=== PATIENT | male | born 1970 | race African-American/Black ===

== ENCOUNTER 2021-09-07 11:56 | Emergency (ER) | payer BC, SELFPAY ==
[2021-09-07 12:10] VITALS: BP 167/94; PULSE 111; RESP 16; TEMP 38.4; O2SAT 98
--- NOTE | 2021-09-07 13:25 | ED.URI ---
HPI - URI/Sore Throat General Chief Complaint: Upper Respiratory Infection Stated Complaint: Cough Time Seen by Provider: 09/07/21 13:11 Source: patient and RN notes reviewed Mode of arrival: ambulatory Limitations: no limitations History of Present Illness HPI Narrative: Patient presents today complaining of 5-day history of productive cough, sneezing, mild sore throat. Denies fever, shortness of breath. Denies sick contacts. He has been taking Tylenol with some relief. History of diabetes. Non-smoker. MD elicited complaint: cough Related Data Home Medications Medication Instructions Recorded Confirmed carvedilol 25 mg PO DAILY 09/07/21 09/07/21 lisinopril-hydrochlorothiazide 1 tablet PO DAILY 09/07/21 09/07/21 sitagliptin-metformin [Janumet XR] 1 tablet PO DAILY 09/07/21 09/07/21 Allergies Allergy/AdvReac Type Severity Reaction Status Date / Time No Known Allergies Allergy Verified 09/07/21 13:18 Review of Systems Review of Systems: CONSTITUTIONAL: Denies body aches, fever, chills, or sweats. EYES: Denies visual changes, redness, or discharge. ENT: Denies rhinorrhea, congestion, or otalgia.+ Sore throat, sneezing CARDIOVASCULAR: Denies chest pain, palpitations, or edema. RESPIRATORY: + Congestion. Denies shortness of breath GASTROINTESTINAL: Denies abdominal pain, nausea, vomiting, or diarrhea. GENITOURINARY: Denies dysuria or hematuria. SKIN: Denies rash, itching, or wounds. MUSCULOSKELETAL: Denies back pain, joint pain, or myalgia. NEUROLOGIC: Denies headache, numbness, tingling, or weakness. PSYCH: Denies depression or anxiety. FOR[facility]LY [facility] Past Medical History Medical History (Updated 09/07/21 @ 13:30 by Carrol Celeste, [facility], ) Diabetes High cholesterol Hypertension Comments At time of signature, I have reviewed and agree with nursing past medical, surgical, social and family history unless otherwise noted. Please see nursing chart for further information. There is no relevant family history pertinent to the presenting complaint Exam Narrative: GENERAL: Well-appearing, well-nourished, and in no acute distress. HEAD: Normocephalic, atraumatic. EYES: EOMI. No redness or drainage. Conjunctivae normal. ENT: Mucous membranes pink and moist. Nares clear. No rhinorrhea. TMs normal bilaterally. Throat normal. Uvula midline. NECK: Normal AROM. Supple. No lymphadenopathy. CHEST: No respiratory distress. Clear to auscultation. HEART: Regular rate and rhythm. No murmur appreciated. Normal peripheral pulses. EXTREMITIES: Normal range of motion. No edema. SKIN: Warm, dry, no rash. Capillary refill normal. Normal skin turgor. NEURO: No focal deficits. Alert and oriented x3. Gait steady. PSYCH: Normal affect. No signs of depression or anxiety. Course Vital Signs Vital signs: Vital Signs Temperature 101.2 F H 09/07/21 12:10 Pulse Rate 111 H 09/07/21 12:10 Respiratory Rate 16 09/07/21 12:10 Blood Pressure 167/94 H 09/07/21 12:10 Pulse Oximetry 98 09/07/21 12:10 Temperature 101.2 F H 09/07/21 12:10 Pulse Rate 111 H 09/07/21 12:10 Respiratory Rate 16 09/07/21 12:10 Blood Pressure 167/94 H 09/07/21 12:10 Pulse Oximetry 98 09/07/21 12:10 Reviewed. Pt has been instructed to follow up with his PCP regarding his elevated blood pressure today. MDM - URI/Sore Throat MDM Narrative Medical decision making narrative: Patient declines Covid PCR Differential Diagnosis Differential diagnosis: Likely upper respiratory infection, sinusitis, viral infection, bronchitis, influenza and other (COVID-19) Lab Data Attestation: I reviewed the patient's lab results. Lab results narrative: Rapid COVID-19 test negative Labs: Influenza A Screen Negative Reference Range: Negative Influenza B Screen Negative Reference Range: Negative Critical Care Time Critic
== END 2021-09-07 13:35 | disposition home or self-care (01) ==
PROVIDERS: Emergency Provider Nurse Practitioner
DX: J40 Bronchitis, not specified as acute or chronic (principal); J06.9 Acute upper respiratory infection, unspecified; Z20.822 Contact with and (suspected) exposure to COVID-19; E11.9 Type 2 diabetes mellitus without complications; E78.00 Pure hypercholesterolemia, unspecified; I10 Essential (primary) hypertension
CPT/HCPCS: 87426; 87804; 99203; C9803; G0463